=== PATIENT | male | born 1985 | race American Indian/Alaskan Native ===

== ENCOUNTER 2018-06-27 08:13 | Emergency (ER) | payer MEDICAID, OTHER ==
[2018-06-27 08:16] VITALS: BMI 25.8
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
[2018-06-27] MEDS ORDERED: Lidocaine PF 2% (5 ml) Inj (For Cardiac Arrhy) ONE (10:22)
[2018-06-27 10:24] VITALS: RESP 18; TEMP 98.4
[2018-06-27 12:18] VITALS: BP 144/78; PULSE 80; O2SAT 98
== END 2018-06-27 12:17 | disposition home or self-care (01) ==
LOC: ED 08:13
DX: L02.31 Cutaneous abscess of buttock (principal); F17.210 Nicotine dependence, cigarettes, uncomplicated

== ENCOUNTER 2018-07-18 09:48 | Emergency (ER) | payer MEDICAID ==
[2018-07-18 09:48] VITALS: BMI 25.8
[2018-07-18 10:11] VITALS: RESP 18; TEMP 98.7; O2SAT 96
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
[2018-07-18 11:17] VITALS: BP 125/80; PULSE 78
== END 2018-07-18 11:17 | disposition home or self-care (01) ==
LOC: ED 09:48
DX: F19.10 Other psychoactive substance abuse, uncomplicated (principal)

== ENCOUNTER 2018-11-28 07:22 | Emergency (ER) | payer SELFPAY, MEDICAID | END 2018-11-28 11:27 | disposition home or self-care (01) | LOC: ED 07:22 ==

== ENCOUNTER 2019-02-05 05:11 | Emergency (ER) | payer SELFPAY ==
[2019-02-05 05:11] VITALS: BMI 25.8
[2019-02-05 05:30] VITALS: RESP 18; TEMP 98
[2019-02-05] MEDS ORDERED: Naloxone 0.4 mg/ml Inj (Adult) IM STA (05:41)
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
--- NOTE | 2019-02-05 07:03 | ED PDOC ---
Physical Exam Vital Signs Temp Pulse Resp BP Pulse Ox 02/05/19 05:29 98.0 F 68 18 112/67 96 Medical Decision Making ED Course and Treatment: 02/05/19 07:02 Case endorsed to me by Dr. Bridges. Awaiting sobriety 02/05/19 13:28 Patient awake, alert, ate, steady gait. - Medication Orders Current Medication Orders: Discontinued Medications Naloxone HCl (Narcan) 0.4 mg IM STAT STA Stop: 02/05/19 05:42 Last Admin: 02/05/19 05:45 Dose: 0.4 mg IM Administration Charges Document 02/05/19 05:45 CNR (Rec: 02/05/19 05:45 CNR [id number]) Injection Site MAR Injection Site Right Deltoid Charges for Administration # of IM Administrations 1 - Scribe Statement The provider has reviewed the documentation as recorded by the Austinibchito Macario All medical record entries made by the Scribe were at my direction and personally dictated by me. I have reviewed the chart and agree that the record accurately reflects my personal performance of the history, physical exam, medical decision making, and the department course for this patient. I have also personally directed, reviewed, and agree with the discharge instructions and disposition. Disposition/Present on Arrival - Present on Arrival Any Indicators Present on Arrival: No History of DVT/PE: No History of Uncontrolled Diabetes: No Urinary Catheter: No History of Decub. Ulcer: No History Surgical Site Infection Following: None - Disposition Have Diagnosis and Disposition been Completed?: Yes Diagnosis: Intoxication Disposition: HOME/ ROUTINE Disposition Time: 13:28 Patient Plan: Discharge Patient Problems: Current Active Problems Problem Status Onset Intoxication Acute Condition: GOOD Discharge Instructions (ExitCare): Narcotic Overdose Forms: [employer] (Citizen Of [place])
[2019-02-05 10:04] VITALS: BP 131/76; PULSE 56; O2SAT 99
== END 2019-02-05 13:35 | disposition home or self-care (01) ==
LOC: ED 05:11
DX: F19.10 Other psychoactive substance abuse, uncomplicated (principal); F17.210 Nicotine dependence, cigarettes, uncomplicated
CPT/HCPCS: 96372; 99284; J2310